=== PATIENT | male | born 1955 | race Caucasian/White ===

== ENCOUNTER → 2016-10-12 | Outpatient (CLI) | payer BC | LOC: FIMAGING 07:57 | PROVIDERS: ATTEND Physician Assistant | DX: K76.9 Liver disease, unspecified (principal); N20.0 Calculus of kidney; I70.0 Atherosclerosis of aorta ==

== ENCOUNTER → 2017-02-14 | Outpatient (CLI) | payer BC | LOC: BMCIMAGING 09:29 | PROVIDERS: ATTEND Internal Medicine | DX: R05 Cough (principal); I70.0 Atherosclerosis of aorta ==

== ENCOUNTER → 2017-03-04 | Outpatient (CLI) | payer BC ==
[~2017-03-04] MED LIST: IOPAMIDOL (ISOVUE 370) 100 ML BTL IV ONE
== END ==
LOC: FIMAGING 12:25
PROVIDERS: ATTEND Internal Medicine
DX: R05 Cough (principal)
CPT/HCPCS: Q9967